=== PATIENT | male | born 1940 | race Caucasian/White ===

== ENCOUNTER 2022-09-22 16:46 | Emergency (ER) | payer MEDICARE, BC, SELFPAY ==
[2022-09-22 16:54] VITALS: BP 185/105; PULSE 70; RESP 24; TEMP 36.4; O2SAT 96; BMI 23.7
--- NOTE | 2022-09-22 19:10 | CRLHL7_ITS ---
For Patients: As a result of the Century Cures Act, medical imaging exams and procedure reports are released immediately into your electronic medical record. You may view this report before your referring provider. If you have questions, please contact your health care provider. INDICATION: Chest pain. TECHNIQUE: Chest 2 views. COMPARISON: None. FINDINGS: Cardiovascular and mediastinum: Cardiomediastinal silhouette is within normal limits Lungs and pleural spaces: Lungs are clear. No sign of pleural effusion. No pneumothorax. Bones and soft tissues: Moderate hiatal hernia.. Mild diffuse demineralization of the visualized bones. Degenerative changes throughout the thoracic spine. Mild anterior wedging in a vertebral body in the superior thoracic spine, could represent compression fracture, age indeterminate. IMPRESSION: Mild anterior wedging in a vertebral body in the superior thoracic spine, could represent compression fracture, age indeterminate. No acute cardiopulmonary process identified. Moderate hiatal hernia. Dictated by Mario Ortiz MD @ 09/22/2022 7:51:11 PM (Electronically Signed)
--- NOTE | 2022-09-22 19:12 | ED_ITS ---
HPI - Fall General Chief Complaint: Fall/Minor Trauma Stated Complaint: Slipped on ice and injured back, Short of breath Time Seen by Provider: 09/22/22 19:00 History of Present Illness HPI Narrative: This 82-year-old male comes in for evaluation of an injury due to a fall that occurred just prior to arrival. He slipped on ice and fell directly on the thoracic region of his back. He denies hitting his head or having loss of consciousness. He was able to get up and ambulate home. He reports pain in this area of his back and some associated chest discomfort that is worsened with taking a deep breath. He denies having any other injury. Related Data Home Medications Medication Instructions Recorded Confirmed famotidine 20 mg tablet mg 09/22/22 Allergies Allergy/AdvReac Type Severity Reaction Status Date / Time No Known Drug Allergies Allergy Verified 09/22/22 16:58 Review of Systems Status of ROS: Reports: 10 or more systems reviewed and unremarkable except as noted in History and below Narrative: Constitutional: Well-developed, well-nourished, no acute distress. HEENT: Normocephalic, atraumatic. Neck: Normal range of motion. Nontender. Supple. Heart: Regular. No murmurs. Normal rate. Intact distal pulses. Lungs: Clear to auscultation. No chest discomfort. No wheezes, rhonchi, or rales. Abdomen: Normal bowel sounds. Nontender. No rebound tenderness. Genitalia: Deferred. Back: No midline tenderness. Normal range of motion. Pain in the thoracic region bilaterally. Extremities: Normal range of motion. No injury. Skin: Intact. No rash. Warm. No erythema or pallor. Neurologic: No altered sensation. No weakness. Alert and oriented. Psychiatric: No suicidality. No anxiety or depression. No insomnia. Nursing notes and vitals signs are reviewed. PFSH FOR[facility] Social History Smoking Status: Never smoker Do you use any of these nicotine containing products: None Second hand tobacco smoke exposure: No How often do you have a drink containing alcohol: never How often do you have six or more drinks on one occasion: Never AUDIT-C Alcohol total score: 0 Non-prescribed substance use: denies use service: No Exam Narrative: Exam Narrative: Constitutional: Well-developed, well-nourished, no acute distress. HEENT: Normocephalic, atraumatic. Neck: Normal range of motion. Nontender. Supple. Heart: Regular. No murmurs. Normal rate. Intact distal pulses. Lungs: Clear to auscultation. No chest discomfort. No wheezes, rhonchi, or rales. Abdomen: Normal bowel sounds. Nontender. No rebound tenderness. Genitalia: Deferred. Back: No midline tenderness. Normal range of motion. Pain in the thoracic region bilaterally. No pain when palpating along the spine. Extremities: Normal range of motion. No injury. Skin: Intact. No rash. Warm. No erythema or pallor. Neurologic: No altered sensation. No weakness. Alert and oriented. Psychiatric: No suicidality. No anxiety or depression. No insomnia. Nursing notes and vitals signs are reviewed. Const: Vital Signs, click to edit/add: Vital Signs - 24 hr 09/22/22 16:54 Temperature 97.5 F L Pulse Rate [Pulse Oximeter] 70 Respiratory Rate 24 Blood Pressure [Ri ght Upper Arm] 185/105 H Pulse Oximetry 96 Oxygen Delivery Me thod Room Air Course Vital Signs Vital signs: Initial Vital Signs Temperature 97.5 F L 09/22/22 16:54 Temperature Source Temporal Artery Scan 09/22/22 16:54 Pulse Rate 70 09/22/22 16:54 Respiratory Rate 24 09/22/22 16:54 Blood Pressure 185/105 H 09/22/22 16:54 Blood Pressure Mean 131 09/22/22 16:54 Pulse Oximetry 96 09/22/22 16:54 Oxygen Delivery Method 09/22/22 16:54 Vital Signs Temperature 97.5 F L 09/22/22 16:54 Pulse Rate 70 09/22/22 16:54 Respiratory Rate 24 09/22/22 16:54 Blood Pressure 185/105 H 09/22/22 16:54 Pulse Oximetry 96 09/22/22 16:54 Oxygen Delivery Method 09/22/22 16:54 Temperature 97.5 F L 09/22/22 16:54 Pulse Rate 70 09/22/22 16:54 Respiratory Rate 24 09/22/22 16:54 Blood Pressure 185/105 H 09/22/22 16:54 Pulse Oximetry 96 09/22/22 16:54 Oxygen Delivery Method 09/22/22 16:54 MDM - Fall MDM Narrative Medical decision making narrative: This 82-year-old male comes in for evaluation of injury to his thoracic back from a fall that occurred just prior to arrival. X-ray of the chest shows no pulmonary injury and no sign of pneumothorax. There is a mild age indeterminate compression fracture in thoracic region. This patient has normal vital signs. He is having some significant discomfort in his mid back that seems to radiate around to his chest. He did receive an intramuscular injection of morphine 10 mg. He also received a rib belt and a prescription for tablets of [place]. Imaging Data Chest x-ray: Radiologist's impression: Mild anterior wedging in a vertebral body in the superior thoracic spine, could represent compression fracture, age indeterminate. No acute cardiopulmonary process identified. Moderate hiatal hernia. Discharge Plan Discharge Clinical Impression: Back contusion Patient Disposition: Home, Self-Care Condition: Unchanged Additional Instructions: Take medication as needed and indicated. Follow up with MD or return if worsening. Prescriptions: No Action famotidine 20 mg tablet Follow Up/Referrals: Trace Wall MD [Primary Care Provider] - Stand Alone Forms: [employer] Info Instructions
[2022-09-22] MEDS: MORPHINE 10 MG/ML inj IM (20:17)
[2022-09-22 20:42] VITALS: BP 185/105; PULSE 70; RESP 24; TEMP 36.4
== END 2022-09-22 20:42 | disposition home or self-care (01) ==
PROVIDERS: Emergency Provider Emergency Medicine Emergency Medical Services; PCP Family Medicine
DX: S30.0XXA Contusion of lower back and pelvis, initial encounter (principal); W19.XXXA Unspecified fall, initial encounter
CPT/HCPCS: 71046; 96372; 99284; J2270

== ENCOUNTER 2023-10-12 10:45 | Outpatient (RCR) | payer MEDICARE, BC, SELFPAY | END 2024-02-09 23:59 | disposition home or self-care (01) | PROVIDERS: PCP Family Medicine; Visit Provider Student in an Organized Health Care Education/Training Program | DX: M54.9 Dorsalgia, unspecified (principal); W19.XXXA Unspecified fall, initial encounter; Z51.89 Encounter for other specified aftercare | CPT/HCPCS: 97110; 97162 ==